=== PATIENT | female | born 2000 ===

== ENCOUNTER 2023-10-23 00:47 | Inpatient (IN) | payer BC ==
[2023-10-23 01:23] VITALS: BMI 25.7
[2023-10-23] MEDS: Lactated Ringer's 1,000 ML IV SCH ×2 (01:50→06:20)
[2023-10-23] MEDS ORDERED: Ibuprofen 800 MG TAB PO PRN (02:24)
[2023-10-23] MEDS ORDERED: Ondansetron PF 4 MG/2 ML Vial IVP PRN ×2 (02:24→03:55)
[2023-10-23] MEDS ORDERED: Promethazine HCl 25 MG/ML VIAL IM PRN ×2 (02:24→03:55)
[2023-10-23] MEDS ORDERED: Lidocaine 1% (PF) 30 ML VIAL SC PRN (02:24)
[2023-10-23] MEDS ORDERED: Tranexamic Acid 1,000 MG/10 ML VIAL IVP PRN (02:24)
[2023-10-23] MEDS ORDERED: hydrALAZINE 20 MG/ML VIAL SLOW IVP PRN ×2 (02:24→13:26)
[2023-10-23] MEDS ORDERED: Methylergonovine 0.2 MG/ML VIAL IM PRN ×2 (02:24→13:26)
[2023-10-23] MEDS ORDERED: Misoprostol 200 MCG TAB PR PRN (02:24)
[2023-10-23] MEDS ORDERED: Oxytocin 30 units/NS 500 ML 500 ML IV SCH ×3 (02:30→13:26)
[2023-10-23 02:46] LABS: Hematocrit 33.3 % (34.9-44.5); Hemoglobin 11.6 g/dL (12.0-15.5); Mean Corpuscular HGB CONC 34.8 g/dL (32.0-36.0); Mean Corpuscular Hemoglobin 31.5 pg (27.0-33.0); Mean Corpuscular Volume 90.5 fl (81.6-98.3); Mean Platelet Volume 12.9 fl (7.4-10.4); Platelet Count 216 10x3/uL (150-450); RBC Distribution Width 12.7 % (11.5-14.5); Red Blood Cell (RBC) Count 3.68 10x6/uL (3.90-5.03); White Blood Cell (WBC) Count 11.4 10x3/uL (3.5-10.5)
[2023-10-23] MEDS ORDERED: fentaNYL/Ropivacaine Epidural 100 ML ONE (02:48)
[2023-10-23 03:21] LABS: Syphilis Antibody Nonreactive (Nonreactive); Syphilis Antibody Index 0.04 S/CO (<1.00 Non-Reactive)
[2023-10-23 03:22] LABS: HBSAg Index 0.16 S/CO (0-0.99); Hep B Surf Ag - L&D Non-Reactive S/CO (NonReactive)
[2023-10-23] MEDS ORDERED: Naloxone HCl 0.4 mg/ml Vial IVP PRN ×2 (03:55)
[2023-10-23] MEDS ORDERED: Lactated Ringer's 500 ML IV PRN (03:55)
[2023-10-23] MEDS ORDERED: diphenhydrAMINE 50 MG/ML VIAL IVP PRN (03:55)
[2023-10-23] MEDS ORDERED: Acetaminophen 325 MG TAB PO PRN (03:55)
[2023-10-23] MEDS ORDERED: Moisturizing Cream (Eucerin) 113 GM JAR TOP PRN (03:55)
[2023-10-23] MEDS ORDERED: ePHEDrine Sulfate 50 MG/10 ML VIAL SLOW IVP PRN (03:55)
[2023-10-23] MEDS ORDERED: Communication Order-Pharmacy FS SCH (04:00)
[2023-10-23] MEDS ORDERED: fentaNYL 2 mcg/Ropivacaine 0.2% Epidural 100 ML CADD EPIDURAL SCH (04:00)
[2023-10-23] MEDS ORDERED: diphenhydrAMINE 25 MG CAP PO PRN (13:26)
[2023-10-23] MEDS ORDERED: Bisacodyl 10 MG SUPP PR PRN (13:26)
[2023-10-23] MEDS ORDERED: Preparation H Ointment 28 GM TUBE PR PRN (13:26)
[2023-10-23] MEDS ORDERED: Milk Of Magnesia 30 ML UDCUP PO PRN (13:26)
[2023-10-23] MEDS ORDERED: Boostrix 0.5 ML (Tdap) VIAL (>/=7 yrs of age) IM ONE (13:26)
[2023-10-23] MEDS ORDERED: Benzocaine-Menthol 82.5 ML CAN TOP PRN (13:26)
[2023-10-23] MEDS ORDERED: Lanolin Ointment 7 GM TUBE TOP PRN (13:26)
[2023-10-23] MEDS: Ibuprofen 800 MG TAB PO SCH ×2 (15:13→22:09)
[2023-10-23] MEDS: Ferrous Sulfate 325 MG TAB PO SCH (18:49)
[2023-10-23] MEDS: Acetaminophen 325 MG TAB PO SCH ×2 (19:30→22:09)
[2023-10-23] MEDS ORDERED: Bupivacaine 0.25% HCL 30 ML VIAL ONE (19:55)
[2023-10-24] MEDS: Acetaminophen 325 MG TAB PO SCH ×4 (05:07→22:43)
[2023-10-24] MEDS: Ibuprofen 800 MG TAB PO SCH ×3 (05:07→22:43)
[2023-10-24] MEDS: Prenatal Vitamin 1 TAB PO SCH (08:35)
[2023-10-24] MEDS: Polyethylene Glycol 3350 17 GM Packet PO SCH (08:35)
[2023-10-24] MEDS: Ferrous Sulfate 325 MG TAB PO SCH ×2 (12:33→17:15)
[2023-10-25] MEDS: Acetaminophen 325 MG TAB PO SCH (05:48)
[2023-10-25] MEDS: Ibuprofen 800 MG TAB PO SCH (05:49)
[2023-10-25] MEDS: Ferrous Sulfate 325 MG TAB PO SCH (08:09)
[2023-10-25 08:11] VITALS: BP 117/70; TEMP 98
[2023-10-25] MEDS: Prenatal Vitamin 1 TAB PO SCH (08:49)
[2023-10-25] MEDS: Polyethylene Glycol 3350 17 GM Packet PO SCH (08:50)
== END 2023-10-25 06:32 | disposition home or self-care (01) | DRG 807 ==
LOC: CSHLD/OP 00:47 → CSHLD 02:24 → CSHPP 14:08
PROVIDERS: ADMIT Obstetrics & Gynecology; ATTEND Obstetrics & Gynecology
PROC: 10E0XZZ Delivery of Products of Conception, External Approach (ICD-10-PCS; principal; 2023-10-23)
PROC: 0HQ9XZZ Repair Perineum Skin, External Approach (ICD-10-PCS; 2023-10-23)
PROC: 0UQMXZZ Repair Vulva, External Approach (ICD-10-PCS; 2023-10-23)
DX: O70.0 First degree perineal laceration during delivery (principal); Z37.0 Single live birth; Z3A.38 38 weeks gestation of pregnancy; O71.82 Other specified trauma to perineum and vulva
CPT/HCPCS: 36415; 51702; 85027; 86780; 86850; 86870; 86900; 86901; 87340; 99285; J7120; S0020